=== PATIENT | male | born 1955 | race Caucasian/White ===

== ENCOUNTER 2016-08-24 09:14 | Inpatient (IN) | payer BC ==
[~2016-08-24] VITALS: Ht 165.1 cm; Wt 81.6 kg
[2016-08-24] MEDS ORDERED: LIDOCAINE W/ EPINEPHRINE 1 % INJ 30ML ONE (11:10)
[2016-08-24] MEDS ORDERED: BUPIVACAINE 0.25% INJ 50ML VIAL ONE (11:10)
[2016-08-24] MEDS ORDERED: MIDAZOLAM HCL 1MG/1ML-2 ML VIAL ONE (11:57)
[2016-08-24] MEDS ORDERED: ROCURONIUM 10MG/ML 10ML VIAL IV ONE (11:58)
[2016-08-24] MEDS ORDERED: fentaNYL CITRATE 5 ML ONE (11:58)
[2016-08-24] MEDS ORDERED: PROPOFOL 10 MG/ML 20 ML IV ONE (12:01)
[2016-08-24] MEDS ORDERED: HYDROmorphone HCL 2 MG/ML VL ONE ×2 (12:58→15:39)
[2016-08-24] MEDS ORDERED: ALBUMIN 5% 250 ML IV ONE ×2 (14:21→14:23)
[2016-08-24] MEDS ORDERED: ePHEDrine SULFATE 50 MG/ML AMP IV PRN (15:30)
[2016-08-24] MEDS ORDERED: hydrALAZINE HCL 20 MG/ML VL IV PRN (15:30)
[2016-08-24] MEDS ORDERED: ONDANSETRON HCL 4 MG/2 ML VIAL IV ONE (15:30)
[2016-08-24] MEDS: HYDROmorphone HCL 2 MG/ML VL IV PRN ×4 (15:44→16:20)
[2016-08-24] MEDS ORDERED: ACETAMINOPHEN 325 MG TAB PO PRN (16:30)
[2016-08-24] MEDS ORDERED: diphenhdrAMINE HCL 25 MG CAP PO PRN (16:30)
[2016-08-24] MEDS ORDERED: ONDANSETRON HCL 4 MG/2 ML VIAL IV PRN (16:30)
[2016-08-24] MEDS ORDERED: OXYCODONE W/ ACETAMINOPHEN 5/325MG TABLET PO PRN (16:30)
[2016-08-24] MEDS ORDERED: HYDROmorphone HCL 2 MG/ML VL IV PRN (16:30)
[2016-08-24 16:43] LABS: Hematocrit 35.5 % (41.0-53.0); Hemoglobin 11.5 g/dL (13.5-17.5)
[2016-08-24] MEDS: SODIUM CHLORIDE 0.9% 1,000 ML IV SCH (17:30)
[2016-08-24 17:43] VITALS: BP 133/71
[2016-08-24] MEDS ORDERED: PANTOPRAZOLE SODIUM 40 MG/10 ML VIAL IV SCH (18:00)
[2016-08-24 18:28] VITALS: BP 133/71
[2016-08-24] MEDS ORDERED: OMEP20CA5 OR (21:33)
[2016-08-24] MEDS ORDERED: ATOR10TA PO (21:33)
[2016-08-24] MEDS: DOCUSATE SOD 100 MG CAP PO SCH (21:58)
[2016-08-24] MEDS: ceFAZolin 1GM/50ML D5W 50 ML IV SCH (21:59)
[2016-08-24] MEDS ORDERED: ATORVASTATIN 20 MG TAB PO SCH (22:00)
[2016-08-24] MEDS ORDERED: SENNA 8.6 MG TAB PO SCH (22:00)
[2016-08-24 22:03] VITALS: BP 129/68
[2016-08-24] MEDS: OXYCODONE W/ ACETAMINOPHEN 5/325MG TABLET PO PRN (22:42)
[2016-08-25] MEDS: SODIUM CHLORIDE 0.9% 1,000 ML IV SCH ×2 (04:21→09:00)
[2016-08-25 05:20] VITALS: BP 117/69
[2016-08-25] MEDS: ceFAZolin 1GM/50ML D5W 50 ML IV SCH ×2 (05:50→14:00)
[2016-08-25] MEDS: DOCUSATE SOD 100 MG CAP PO SCH ×2 (05:50→14:00)
[2016-08-25 05:54] LABS: Basophils # (auto) 0 uL; Basophils % (auto) 0.1 % (0.0-2.0); Eosinophils # (auto) 0 uL; Hematocrit 29.8 % (41.0-53.0); Hemoglobin 9.9 g/dL (13.5-17.5); Lymphocytes % (auto) 6.3 % (10.0-50.0); Mean Corpuscular Hgb Conc. 33.3 g/dL (32.0-36.0); Mean Corpuscular Volume 87.2 fL (80.0-100.0); Mean Platelet Volume 7.7 fL (7.4-10.4); Monocytes # (auto) 0.7 uL; Monocytes % (auto) 4.1 % (0.0-12.0); Neutrophils # (auto) 14.3 uL; Neutrophils % (auto) 89.5 % (37.0-80.0); Platelet Count (auto) 263 10^3/uL (140-450); Red Cell Distribution Width 13.1 % (11.6-16.0)
[2016-08-25 06:07] LABS: Calcium 7.9 mg/dL (8.5-10.1); Potassium 3.9 mmol/L (3.5-5.1)
[2016-08-25 07:48] VITALS: BP 105/49
[2016-08-25] MEDS: OXYCODONE W/ ACETAMINOPHEN 5/325MG TABLET PO PRN (08:59)
[2016-08-25] MEDS ORDERED: PANTOPRAZOLE SODIUM 40 MG/10 ML VIAL IV SCH (10:00)
[2016-08-25 11:49] VITALS: BP 99/47
[2016-08-25 12:44] VITALS: BP 99/47
== END 2016-08-25 14:11 | disposition home or self-care (01) | DRG 708 ==
LOC: SUR 09:14 → EAST 09:15
PROVIDERS: ADMIT Urology; ATTEND Internal Medicine
PROC: 0TQC4ZZ Repair Bladder Neck, Percutaneous Endoscopic Approach (ICD-10-PCS; 2016-08-24)
PROC: 8E0W4CZ Robotic Assisted Procedure of Trunk Region, Percutaneous Endoscopic Approach (ICD-10-PCS; 2016-08-24)
PROC: 0VT04ZZ Resection of Prostate, Percutaneous Endoscopic Approach (ICD-10-PCS; principal; 2016-08-24 11:55)
DX: C61 Malignant neoplasm of prostate (principal); F17.200 Nicotine dependence, unspecified, uncomplicated; E78.5 Hyperlipidemia, unspecified; K21.9 Gastro-esophageal reflux disease without esophagitis
CPT/HCPCS: 36415; 80048; 85014; 85018; 85025; 85049; 86850; 86900; 86901; C9113; J0690; J2250; J2704; J3490